=== PATIENT | female | born 1995 | race Hispanic/Latino ===

== ENCOUNTER 2023-07-03 05:02 | Emergency (ER) | payer SELFPAY ==
[2023-07-03] MEDS ORDERED: Dexamethasone 10 MG/ML VIAL ONE (06:04)
== END 2023-07-03 06:10 | disposition home or self-care (01) ==
LOC: ERS 05:02
DX: L30.9 Dermatitis, unspecified (principal)
CPT/HCPCS: 96372; 99282; J1100